=== PATIENT | female | born 1980 | race American Indian/Alaskan Native ===

== ENCOUNTER 2018-12-12 22:54 | Emergency (ER) | payer OTHER ==
[2018-12-12] MEDS ORDERED: diphenhydrAMINE 25 MG CAP PO ONE (23:30)
--- NOTE | 2018-12-12 23:31 | Emergency Department Report ---
ED General Adult HPI - General Chief complaint: Chest Pain Stated complaint: HEART RACING,DIZZY,WEAK Time Seen by Provider: 12/12/18 23:16 Source: patient, RN notes reviewed Mode of arrival: Ambulatory Limitations: No Limitations - History of Present Illness Initial comments: During the history and physical examination, chaperoned by nurse SAMUEL ANDREW This is a pleasant 38-year-old female. This patient is not known to this provider previously. The patient states that she is not , and indicates that she has not delivered her given within the past 6 weeks. The patient does not have a local primary care doctor. The patient presents to the ER today with a complaint of painless heart racing, palpitations, sensation of room moving back and forth, intermittent weakness, and sensation of "pressure all ov er my body." The symptoms have been going on for one week. They're intermittent. They do not have exacerbating or relieving factors. The patient denies DVT, pulmonary embolism risk factors. -: Gradual, days(s) Consistency: intermittent Improves with: none Worsens with: none - Related Data Allergies Allergy/AdvReac Type Severity Reaction Status Date / Time No Known Allergies Allergy Unverified 12/12/18 23:27 ED Review of Systems ROS: Stated complaint: HEART RACING,DIZZY,WEAK Other details as noted in HPI Constitutional: malaise, weakness. denies: fever Eyes: denies: eye discharge, vision change ENT: denies: dental pain, congestion Respiratory: denies: wheezing Cardiovascular: palpitations. denies: chest pain, syncope Gastrointestinal: denies: abdominal pain Genitourinary: denies: dysuria Musculoskeletal: denies: myalgia Skin: denies: lesions Neurological: weakness Psychiatric: denies: anxiety Hematological/Lymphatic: denies: easy bleeding ED Past Medical Hx - Past Medical History Previous Medical History?: No - Surgical History Past Surgical History?: No - Social History Smoking Status: Never Smoker Substance Use Type: None ED Physical Exam - General Limitations: No Limitations General appearance: alert, anxious - Head Head exam: Present: atraumatic, normocephalic - Eye Eye exam: Present: normal appearance, PERRL, EOMI, other (visual acuity intact to finger counting, color perception, reading at a close distance). Absent: nystagmus - ENT ENT exam: Present: normal exam, normal orophraynx, mucous membranes moist, normal external ear exam - Neck Neck exam: Present: normal inspection - Respiratory Respiratory exam: Present: normal lung sounds bilaterally. Absent: respiratory distress, chest wall tenderness - Cardiovascular Cardiovascular Exam: Present: regular rate, normal rhythm, normal heart sounds. Absent: bradycardia, tachycardia, irregular rhythm, systolic murmur, diastolic murmur, rubs, gallop - GI/Abdominal GI/Abdominal exam: Present: soft. Absent: distended, tenderness, guarding, rebound, rigid, pulsatile mass - Extremities Exam Extremities exam: Present: normal inspection, full ROM, other (2+ pulses noted in the bilateral upper, lower extremities. Compartments soft. No long bony tenderness. The pelvis is stable.). Absent: pedal edema, joint swelling, calf tenderness - Back Exam Back exam: Present: normal inspection, full ROM. Absent: tenderness, CVA tenderness (R), CVA tenderness (L), paraspinal tenderness, vertebral tenderness - Neurological Exam Neurological exam: Present: alert (there is no pass pointing. There is normal heel to rendon. There is no pronator drift. There is normal gait. There is normal tendon gait. There is negative Romberg examination.), oriented X3, normal gait, other (Extraocular movements intact. Tongue midline. No facial droop. Facial sensation intact to light touch in the V1, V2, V3 distribution bilaterally. 5 and 5 strength in 4 extremities.. Sensation is intact to light touch in 4 extremities.). Absent: motor sensory deficit - Psychiatric Psychiatric exam: Present: anxious - Skin Skin exam: Present: warm, dry, intact, normal color. Absent: rash ED Course Vital Signs 12/12/18 12/12/18 23:00 23:40 Temperature 98 F 98.2 F Pulse Rate 99 H 78 Respiratory 20 13 Rate Blood Pressure 194/94 Blood Pressure 145/63 [Left] O2 Sat by Pulse 98 100 Oximetry - Reevaluation(s) Reevaluation #1: 12/13/18 00:25 Differential diagnosis, including not limited to: Thyroid derangement, electrolyte derangement, anemia, , anxiety, conversion disorder, mitral valve prolapse Assessment and plan: 38-year-old female with a number of nonspecific complaints. She is afebrile with reassuring vital signs and resolved elevated blood pressure. She is not tachycardic or hypoxic, she is low risk by well's criteria, and she is perc negative He does not endorse any chest pain to this provider. She has a GCS of 15, with an NIH score of 0, and no focal neurologic deficits. She is clinically sober at this time, and indicates she does not use any recreational drugs. At this point in time, it is unlikely that the patient has an emergent condition. She was given Benadryl for symptoms, blood pressure improved, screening laboratory studies pending at this time. Reevaluation #2: 12/13/18 01:02 Laboratory studies unremarkable. Vital signs improved. Patient suitable for discharge at this point in time with outpatient follow-up. ED Medical Decision Making - Lab Data Result diagrams: 12/12/18 23:41 12/12/18 23:41 Vital Signs 12/12/18 12/12/18 23:00 23:40 Temperature 98 F 98.2 F Pulse Rate 99 H 78 Respiratory 20 13 Rate Blood Pressure 194/94 Blood Pressure 145/63 [Left] O2 Sat by Pulse 98 100 Oximetry Lab Results 12/12/18 12/12/18 Range/Units 23:33 23:41 WBC 11.8 H (4.5-11.0) K/mm3 RBC 4.57 (3.65-5.03) M/mm3 Hgb 12.7 (10.1-14.3) gm/dl Hct 38.3 (30.3-42.9) % MCV 84 (79-97) fl MCH 28 (28-32) pg MCHC 33 (30-34) % RDW 13.8 (13.2-15.2) % Plt Count 332 (140-440) K/mm3 HCG, Quant < 2 (0-4) mIU/mL - EKG Data -: EKG Interpreted by Sd EKG shows normal: sinus rhythm Rate: normal - EKG Data When compared to previous EKG there are: previous EKG unavailable 12/13/18 00:25 There is no prior EKG available for comparison. This is a sinus rhythm, 85 bpm, normal axis, QTC is within normal limits, there is no ST elevation myocardial infarction. The EKG is unremarkable. Critical care attestation.: If time is entered above; I have spent that time in minutes in the direct care of this critically ill patient, excluding procedure time. ED Disposition Clinical Impression: History of palpitations Disposition: DC-01 TO HOME OR SELFCARE Is pt being admited?: No Does the pt Need Aspirin: No Condition: Stable Additional Instructions: Recommend avoidance of caffeine, stimulants and energy drinks. Recommend patient get at least 7-8 hours of good quality uninterrupted sleep each night. Recommend follow-up with an outpatient primary care doctor or metal solderer within the next 7-10 days. Return to the emergency room right away with projectile vomiting, change in mental status, confusion, inability to tolerate liquid feeds, new, worsening or different symptoms not present on the initial emergency room evaluation. Referrals: ARMEN PAGANCONCORD MD [facility] [Primary Care Provider] - 3-5 Days [facility] [Provider Group] - 3-5 Days [facility] [Provider Group] - 3-5 Days [facility] [Provider Group] - 3-[address] [facility] [Provider Group] - 3-5 Days
[2018-12-12 23:54] LABS: Hematocrit 38.3 % (30.3-42.9); Hemoglobin 12.7 gm/dl (10.1-14.3); Mean Corpuscular HGB Conc 33 % (30-34); Mean Corpuscular Volume 84 fl (79-97); Platelet Count 332 K/mm3 (140-440); Red Blood Count 4.57 M/mm3 (3.65-5.03); Red Cell Distribution Width 13.8 % (13.2-15.2)
[2018-12-13 00:24] LABS: Alanine Aminotransferase 15 units/L (7-56); BUN/Creatinine Ratio 22; Blood Urea Nitrogen 13 mg/dL (7-17); Calcium 8.9 mg/dL (8.4-10.2); Hemolysis Index 1
[2018-12-13 00:25] LABS: Bilirubin,Urine NEG (Negative); Blood,Urine NEG (Negative); Color,Urine Yellow (Yellow); Mucus,Urine FEW /HPF; Protein,Urine <15 mg/dL mg/dL (Negative); Urobilinogen,Urine < 2.0 mg/dL (<2.0)
[2018-12-13 00:33] LABS: Amphetamine Screen,Urine PRESUMPTIVE NEGATIVE; Benzodiazepines Screen,Urine PRESUMPTIVE NEGATIVE; Cannabinoid Screen,Urine PRESUMPTIVE NEGATIVE; Cocaine Screen,Urine PRESUMPTIVE NEGATIVE; Methadone Screen,Urine PRESUMPTIVE NEGATIVE; Opiate Screen,Urine PRESUMPTIVE NEGATIVE
[2018-12-13 02:01] VITALS: BP 135/68
== END 2018-12-13 01:42 | disposition home or self-care (01) ==
LOC: ED 22:54
DX: R00.2 Palpitations (principal); R07.89 Other chest pain
CPT/HCPCS: 36415; 80053; 80307; 80320; 81001; 82550; 83735; 84443; 84702; 85027; 93005; 93010; 99284; G0480